=== PATIENT | male | born 1970 | race Caucasian/White ===

== ENCOUNTER 2020-08-03 16:35 | Emergency (ER) | payer BC, OTHER ==
[~2020-08-03] VITALS: Ht 172.7 cm; Wt 81.6 kg
[2020-08-03 16:53] VITALS: BP_SYST 127
--- NOTE | 2020-08-03 16:57 | NUR ---
SENT TO [facility]
[2020-08-03] MEDS ORDERED: KETOROLAC TROMETHAMINE 60 MG/2 ML VIAL IM ONE (17:15)
--- NOTE | 2020-08-03 17:21 | NUR ---
EXAMINED BY KARIME GARCÍA
--- NOTE | 2020-08-03 17:48 | NUR ---
MEDICATED WITH TORADOL
--- NOTE | 2020-08-03 18:59 | NUR ---
PLACED IN HALLWAY
--- NOTE | 2020-08-03 19:07 | NUR ---
OFF TO CT VIA WHEELCHAIR, CALM, ALERT, RESP UNLABORED
[2020-08-03 19:38] LABS: PROTHROMBIN TIME 10.3 SECS (9.5-12.5)
[2020-08-03 20:35] VITALS: BP_SYST 127
== END 2020-08-03 20:35 | disposition home or self-care (01) ==
LOC: SED 16:35
DX: S20.212A Contusion of left front wall of thorax, initial encounter (principal); R03.0 Elevated blood-pressure reading, without diagnosis of hypertension; W18.39XA Other fall on same level, initial encounter; Y93.89 Activity, other specified; Y92.89 Other specified places as the place of occurrence of the external cause; Y99.0 Civilian activity done for income or pay
CPT/HCPCS: 36415; 71046; 71100; 71250; 74176; 76376; 85610; 85730; 96372; 99285; J1885